=== PATIENT | male | born 1965 | race Caucasian/White ===

== ENCOUNTER 2018-09-27 19:08 | Emergency (ER) | payer MEDICAID, OTHER ==
[~2018-09-27] VITALS: Ht 177.8 cm; Wt 132.2 kg
[2018-09-27 19:13] VITALS: BP 132/74; PULSE 105; RESP 20; Ht 177.8 cm; Wt 132.2 kg
--- NOTE | 2018-09-27 22:49 | ERD ---
ER Documentation Chief Complaint Chief Complaint COUGH AND FEVER X 2 DAYS HPI This is a 53-year-old male who presents ration of cough, and fevers for the last 2 days associated body aches. He has had no shortness of breath, denies nausea vomiting, he has not had any chest pain. He has no history of diabetes, he also request a exam, for evaluation of 1 year of peeling of the shaft of his penis. He has not noted any penile drainage or ulcerations. He has not been sexually active in a very long time, as he has a prior history of Guillain-Partida syndrome. ROS All systems reviewed and are negative except as per history of present illness. Medications Home Meds Active Scripts Clotrimazole (Clotrim) 15 Gm Cr, 1 APPLIC TOP BID for 10 Days, TUB Prov:IVORY GREENE MD 09/28/18 Albuterol Sulfate* (Ventolin HFA*) 18 Gm Hfa.aer.ad, 2 PUFF INHALATION Q4H, #1 INHALER Prov:IVORY GREENE MD 09/28/18 Allergies Allergies: Coded Allergies: No Known Allergies (Verified Allergy, Unknown, 09/27/18) PMhx/Soc History of Surgery: No Anesthesia Reaction: No Hx Neurological Disorder: No Hx Respiratory Disorders: No Hx Cardiac Disorders: Yes (HTN) Hx Psychiatric Problems: No Hx Miscellaneous Medical Probl: No Hx Alcohol Use: No Hx Substance Use: No Hx Tobacco Use: No Smoking Status: Never smoker Physical Exam Vitals Vital Signs Date Temp Pulse Resp B/P (MAP) Pulse Ox O2 O2 Flow FiO2 Time Delivery Rate 09/27/18 98.8 105 20 132/74 97 19:13 (93) Physical Exam Const: Well-appearing, well-developed, well-nourished, obese Head: Atraumatic Eyes: Normal Conjunctiva ENT: Normal External Ears, Nose and Mouth. Neck: Full range of motion. No meningismus. Resp: Clear to auscultation bilaterally, no wheezes rales or rhonchi Cardio: Regular rate and rhythm, no murmurs Abd: Soft, non tender, non distended. Normal bowel sounds exam there is some peeling of the skin at the proximal area of the shaft of the penis, there are no ulcers, there is no purulent drainage. Skin: No petechiae or rashes Back: No midline or flank tenderness Ext: No cyanosis, or edema Neur: Awake and alert Psych: Normal Mood and Affect Results 24 hrs Laboratory Tests Test 09/27/18 23:03 Bedside Glucose 97 mg/dL Current Medications Medications Dose Sig/Prudencio Start Time Status Last (Trade) Ordered Route PRN Stop Time Admin Dose Reason Admin Ketorolac 15 mg ONCE STAT 09/27/18 DC 09/27/18 Tromethamine IM 22:54 23:04 (Toradol) 09/27/18 22:55 Procedures/MDM 53-year-old male presents for reduction of cough and fever for last 2 days. On exam patient is well-developed and well-nourished, he has no evidence of respiratory distress, I suspect most likely viral syndrome, could also be bronchitis, his chest x-ray was negative for consolidations or signs of bacterial pneumonia. He will be discharged with prescription for albuterol, for symptomatic treatment, additionally regarding the skin peeling of his penis shaft, Rx for Clotrimazole was given to prevent infection. I advised that he follow-up with PMD, at discharge hhe was in no distress. Departure Diagnosis: Primary Impression: Cough Additional Impression: Bronchitis Condition: Stable IVORY GREENE MD Sep 27, 2018 22:49
[2018-09-27] MEDS ORDERED: KETOROLAC 15 MG INJ IM STA (22:54)
[2018-09-28] MEDS ORDERED: CLO15CR1 TOP (00:15)
[2018-09-28] MEDS ORDERED: ALBU18HF INHALATION (00:15)
== END 2018-09-28 00:32 | disposition home or self-care (01) ==
LOC: FTE 19:08
DX: J40 Bronchitis, not specified as acute or chronic (principal); I10 Essential (primary) hypertension
CPT/HCPCS: 71045; 82962; 96372; J1885; Z7502